=== PATIENT | female | born 1990 | race Caucasian/White ===

== ENCOUNTER 2017-03-30 18:43 | Emergency (ER) | payer SELFPAY ==
[~2017-03-30] VITALS: Ht 157.5 cm; Wt 56.7 kg
[2017-03-30 19:10] VITALS: BP_SYST 102
--- NOTE | 2017-03-30 19:10 | NUR ---
Patient triaged and placed in waiting room. VSS and patient appears in no acute distress at this time. Awaiting available bed, and MD notified of need for MSE.
[2017-03-30 20:29] LABS: BILIRUBIN,URINE NEGATIVE (NEGATIVE); BLOOD, URINE NEGATIVE (NEGATIVE); COLOR,URINE YELLOW (YELLOW); GLUCOSE,URINE NEGATIVE (NEGATIVE); KETONES,URINE NEGATIVE (NEGATIVE); LEUKOCYTE ESTERASE ,URINE 2+ (NEGATIVE); NITRITE, URINE NEGATIVE (NEGATIVE); PH,URINE 6.5 (5.0-8.0); PROTEIN URINE NEGATIVE (NEGATIVE); UROBILINOGEN,URINE 0.2 (0.2-1.0)
[2017-03-30 20:30] LABS: CLARITY/URINE HAZY (CLEAR)
[2017-03-30 20:32] LABS: BASOPHILS % (AUTO) 0.5 % (0.0-2.0); EOSINOPHILS % (AUTO) 0.8 % (0.0-4.0); HEMATOCRIT 41.5 % (36-48); HEMOGLOBIN 14.1 g/dL (12.0-16.0); LYMPHOCYTES # (AUTO) 1.7 K/uL (1.0-5.5); LYMPHOCYTES % (AUTO) 40.3 % (20.5-51.5); MEAN CORPUSCULAR HEMOGLOBIN 30 pg (27-31); MEAN CORPUSCULAR HGB CONC 34 % (32-36); MEAN CORPUSCULAR VOLUME 89 fL (79.0-98.0); MONOCYTES # (AUTO) 0.3 K/uL (0.0-1.0); MONOCYTES % (AUTO) 7.5 % (1.7-9.3); NEUTROPHILS # (AUTO) 2.3 K/uL (1.8-7.7); NEUTROPHILS % (AUTO) 50.9 % (40.0-70.0); PLATELET COUNT (AUTO) 258 K/uL (130-430); RED BLOOD CELL COUNT(AUTO) 4.65 MIL/uL (4.2-6.2); WHITE BLOOD COUNT (AUTO) 4.3 K/uL (4.8-10.8)
[2017-03-30 20:34] LABS: BACTERIA,URINE FEW /HPF (None Seen); RBC,URINE 0-3 /HPF (0-3)
[2017-03-30 20:35] LABS: MUCUS,URINE 1+ /LPF (None Seen)
[2017-03-30 20:51] LABS: CALCIUM 9.5 mg/dL (8.4-11.0); CREATININE 0.61 mg/dL (0.55-1.30); POTASSIUM 3.8 mmol/L (3.5-5.1)
[2017-03-30 20:55] LABS: ALBUMIN 4.2 g/dL (3.4-4.8); TOTAL BILIRUBIN 0.4 mg/dL (0.0-1.0)
--- NOTE | 2017-03-30 22:10 | NUR ---
Patient to ER bed 6 to gown for evaluation. Side rails up. Report given by KANDY Cuellar to KANDY Pandya.
--- NOTE | 2017-03-30 22:12 | NUR ---
Patient AAOx3, ambulatory. Patient states having abdominal pain to upper right quadrant for "a while" prior to ER visit, states pain is worsening. Patient states pain is to upper right abdomen and radiates to right lower flank. Patient states pain scale 8/10 with a sharp sensation. Patient +nausea, -vomiting, -diarrhea. Patient denies any other complaints.
--- NOTE | 2017-03-30 22:29 | NUR ---
ER Dr. Brower at bedside examining patient.
[2017-03-30 23:10] VITALS: BP_SYST 104
--- NOTE | 2017-03-30 23:10 | NUR ---
Patient given written and verbal discharge instructions and verbalizes understanding. ER MD discussed with patient the results and treatment provided. Patient in stable condition. ID arm band removed. Rx of pyridium and macrobid given. Patient educated on pain management and to follow up with PMD. Pain Scale 0/10. Opportunity for questions provided and answered.
== END 2017-03-30 23:10 | disposition home or self-care (01) ==
LOC: SED 18:43
DX: N39.0 Urinary tract infection, site not specified (principal); Z87.19 Personal history of other diseases of the digestive system
CPT/HCPCS: 36415; 80053; 81000-TC; 81025; 82150-TC; 83690-TC; 85025; 87086; 99284

== ENCOUNTER 2017-04-07 16:29 | Emergency (ER) | payer MEDICAID ==
[~2017-04-07] VITALS: Ht 157.5 cm; Wt 56.7 kg
[2017-04-07 16:40] VITALS: BP_SYST 123
--- NOTE | 2017-04-07 16:44 | NUR ---
Patient triaged and placed in waiting room. VSS and patient appears in no acute distress at this time. Accompanied by self, awaiting available bed, and MD notified of need for MSE.
[2017-04-07 17:17] LABS: BASOPHILS % (AUTO) 0.3 % (0.0-2.0); EOSINOPHILS % (AUTO) 0.7 % (0.0-4.0); HEMATOCRIT 40.8 % (36-48); HEMOGLOBIN 13.8 g/dL (12.0-16.0); LYMPHOCYTES % (AUTO) 35.6 % (20.5-51.5); MEAN CORPUSCULAR HEMOGLOBIN 30 pg (27-31); MEAN CORPUSCULAR HGB CONC 34 % (32-36); MEAN CORPUSCULAR VOLUME 90 fL (79.0-98.0); MONOCYTES # (AUTO) 0.4 K/uL (0.0-1.0); MONOCYTES % (AUTO) 6.4 % (1.7-9.3); NEUTROPHILS # (AUTO) 3.3 K/uL (1.8-7.7); PLATELET COUNT (AUTO) 270 K/uL (130-430); RED BLOOD CELL COUNT(AUTO) 4.54 MIL/uL (4.2-6.2); RED CELL DISTRIBUTION WIDTH 11.7 % (9.0-15.0); WHITE BLOOD COUNT (AUTO) 5.7 K/uL (4.8-10.8)
[2017-04-07 17:23] LABS: CALCIUM 9.1 mg/dL (8.4-11.0); CREATININE 0.65 mg/dL (0.55-1.30); POTASSIUM 3.5 mmol/L (3.5-5.1)
[2017-04-07 17:29] LABS: ALBUMIN 4.2 g/dL (3.4-4.8); TOTAL BILIRUBIN 0.4 mg/dL (0.0-1.0)
[2017-04-07 17:59] LABS: BILIRUBIN,URINE NEGATIVE (NEGATIVE); BLOOD, URINE NEGATIVE (NEGATIVE); COLOR,URINE YELLOW (YELLOW); GLUCOSE,URINE NEGATIVE (NEGATIVE); KETONES,URINE NEGATIVE (NEGATIVE); NITRITE, URINE NEGATIVE (NEGATIVE); PROTEIN URINE NEGATIVE (NEGATIVE); UROBILINOGEN,URINE 0.2 (0.2-1.0)
[2017-04-07 18:06] LABS: CLARITY/URINE HAZY (CLEAR); LEUKOCYTE ESTERASE ,URINE 1+ (NEGATIVE)
[2017-04-07 18:07] LABS: BACTERIA,URINE FEW /HPF (None Seen); MUCUS,URINE None Seen /LPF (None Seen); RBC,URINE 0-3 /HPF (0-3)
--- NOTE | 2017-04-07 18:20 | NUR ---
Ambulatory to bed 6, report given to KANDY Salinas
--- NOTE | 2017-04-07 18:25 | NUR ---
Pt complains of pain to lower abdomen that radiates to bilateral flank. Pt states she was here on 03/30/17 and treated for UTI. Pt was prescribed Macrobid, but finished medication. Per patient, pain is still present and pt states pressure while urinating. Pt denies N/V or fever. No other injuries/complaints per patient or noted.
--- NOTE | 2017-04-07 18:27 | NUR ---
ER Dr. Andersen at bedside examining patient.
[2017-04-07] MEDS ORDERED: KETOROLAC TROMETHAMINE 60 MG/2 ML VIAL IM ONE (18:45)
--- NOTE | 2017-04-07 18:49 | NUR ---
Medication was given, pt tolerated well. No adverse reaction, will continue to monitor.
[2017-04-07 19:36] VITALS: BP_SYST 120
--- NOTE | 2017-04-07 19:36 | NUR ---
Patient given written and verbal discharge instructions and verbalizes understanding. ER MD discussed with patient the results and treatment provided. Patient in stable condition. ID arm band removed. Rx of augmentin, miralax, motrin given. Patient educated on pain management and to follow up with PMD. Pain Scale 0/10. Opportunity for questions provided and answered.
== END 2017-04-07 19:36 | disposition home or self-care (01) ==
LOC: SED 16:29
DX: N39.0 Urinary tract infection, site not specified (principal); K59.00 Constipation, unspecified
CPT/HCPCS: 36415; 74176; 80053; 81000; 81025; 83690; 84703; 85025; 85610; 85730; 87086; 96372; 99285; J1885

== ENCOUNTER 2017-04-24 13:59 | Emergency (ER) | payer MEDICAID ==
[~2017-04-24] VITALS: Ht 157.5 cm; Wt 568.4 kg
[2017-04-24 14:51] VITALS: BP_SYST 119
[2017-04-24 15:02] LABS: BILIRUBIN,URINE NEGATIVE (NEGATIVE); BLOOD, URINE 2+ (NEGATIVE); CLARITY/URINE CLEAR (CLEAR); COLOR,URINE YELLOW (YELLOW); GLUCOSE,URINE NEGATIVE (NEGATIVE); KETONES,URINE NEGATIVE (NEGATIVE); LEUKOCYTE ESTERASE ,URINE NEGATIVE (NEGATIVE); NITRITE, URINE NEGATIVE (NEGATIVE); PH,URINE 5.5 (5.0-8.0); PROTEIN URINE NEGATIVE (NEGATIVE); UROBILINOGEN,URINE 0.2 (0.2-1.0)
[2017-04-24 15:19] LABS: BACTERIA,URINE FEW /HPF (None Seen); WBC,URINE 0-3 /HPF (0-3)
== END 2017-04-25 15:35 | disposition left against medical advice (07) ==
LOC: SED 13:59
DX: R10.9 Unspecified abdominal pain (principal); Z53.21 Procedure and treatment not carried out due to patient leaving prior to being seen by health care provider
CPT/HCPCS: 81000-TC; 99281; 99283